=== PATIENT | female | born 1970 | race Caucasian/White ===

== ENCOUNTER 2020-06-26 20:29 | Emergency (ER) | payer OTHER ==
[~2020-06-26] VITALS: Ht 177.8 cm; Wt 86.2 kg
[~2020-06-26 20:29] MED LIST: PROVENTAL; XANAX
[2020-06-26 20:35] VITALS: BP_SYST 142
[2020-06-26] MEDS ORDERED: KETOROLAC TROMETHAMINE 30 MG VIAL IM ONE (20:45)
[2020-06-26] MEDS ORDERED: ACETAMINOPHEN 500 MG TABLET PO ONE (22:00)
[2020-06-26 23:19] VITALS: BP_SYST 142
== END 2020-06-26 23:19 | disposition home or self-care (01) ==
LOC: SED 20:29
DX: S82.831A Other fracture of upper and lower end of right fibula, initial encounter for closed fracture (principal); S93.692A Other sprain of left foot, initial encounter; F41.9 Anxiety disorder, unspecified; K21.9 Gastro-esophageal reflux disease without esophagitis; N28.9 Disorder of kidney and ureter, unspecified; J45.909 Unspecified asthma, uncomplicated; Z88.5 Allergy status to narcotic agent; Z88.6 Allergy status to analgesic agent; W01.0XXA Fall on same level from slipping, tripping and stumbling without subsequent striking against object, initial encounter; Y93.89 Activity, other specified; Y92.89 Other specified places as the place of occurrence of the external cause; Y99.8 Other external cause status
CPT/HCPCS: 29515; 73610; 73630; 96372; 99284; J1885

== ENCOUNTER 2021-09-21 17:32 | Emergency (ER) | payer OTHER ==
[~2021-09-21] VITALS: Ht 165.1 cm; Wt 70.3 kg
[2021-09-21 17:40] VITALS: BP_SYST 147
--- NOTE | 2021-09-21 17:50 | NUR ---
Placed in room 3 . Placed on property assessment monitor, blood pressure machine and pulse oximeter. To gown for exam. Side rails up.
--- NOTE | 2021-09-21 17:58 | NUR ---
Pt came into ER with complaint of epistaxis [id number] ago. Pt reports she was washing dishes when the nose bleed started. Pt reports headache 08/26. Pt denies blood thinners. Pt reports history of epistaxis. Pt VSS resting in gurney with nose clamp and gauze applied to nostrils. Pt bleeding has been controlled. Pt presents with blood all around her mouth and nose and cheeks. Pt is AAOX4 speaking full sentences. Resting in gurney attached to monitor.
[2021-09-21] MEDS ORDERED: OXYMETAZOLINE HCL 0.05% NASAL SPRAY NS PRN (18:15)
--- NOTE | 2021-09-21 18:46 | NUR ---
ER at bedside examining patient.
[2021-09-21] MEDS ORDERED: TRANEXAMIC ACID 1,000 MG/10 ML VIAL TP ONE (19:00)
--- NOTE | 2021-09-21 19:04 | NUR ---
Called house cleaner supervisor for med not loaded in pyxus. Pharmacy is closed.
[2021-09-21] MEDS ORDERED: SILVER NITRATE APPLICATOR 1 STICK STICK..EA. TP ONE (19:45)
--- NOTE | 2021-09-21 19:50 | NUR ---
MD Dr. Gomes at bedside with pt.
--- NOTE | 2021-09-21 19:52 | NUR ---
Care endorsed to Charly CEVALLOS.
--- NOTE | 2021-09-21 20:02 | NUR ---
Dr. Gomes bedside for procedure, well tolerated
--- NOTE | 2021-09-21 20:26 | NUR ---
Patient given written and verbal discharge instructions and verbalizes understanding. ER MD discussed with patient the results and treatment provided. Patient in stable condition. ID arm band removed. Patient educated on pain management and to follow up with PMD. Pain Scale 0. Opportunity for questions provided and answered. Medication side effect fact sheet provided.
[2021-09-21 20:27] VITALS: BP_SYST 121
== END 2021-09-21 20:26 | disposition home or self-care (01) ==
LOC: SED 17:32
DX: R04.0 Epistaxis (principal); K21.9 Gastro-esophageal reflux disease without esophagitis; J45.909 Unspecified asthma, uncomplicated; Z88.5 Allergy status to narcotic agent
CPT/HCPCS: 99284